=== PATIENT | male | born 2000 | race Caucasian/White ===

== ENCOUNTER 2022-02-02 14:21 | Emergency (ER) | payer OTHER | END 2022-02-02 15:30 | disposition home or self-care (01) | LOC: LL.ED 14:21 | DX: M41.125 Adolescent idiopathic scoliosis, thoracolumbar region (principal); Z88.8 Allergy status to other drugs, medicaments and biological substances | CPT/HCPCS: 72082; 99283 ==

== ENCOUNTER 2022-07-19 20:08 | Emergency (ER) | payer OTHER ==
[2022-07-19] MEDS ORDERED: Sodium Chloride 0.9% 10 ML Syringe FLUSH PRN (20:14)
[2022-07-19] MEDS ORDERED: Ondansetron 4 MG/2 ML SDV IVPUSH ONE (20:15)
[2022-07-19] MEDS ORDERED: Sodium Chloride 0.9% 1,000 ML IV SCH ×2 (20:30→21:45)
[2022-07-19 21:36] LABS: BARBITURATE SCREEN,URINE NEGATIVE (NEGATIVE); BENZODIAZEPINES SCREEN,URINE NEGATIVE (NEGATIVE); EDDP,URINE SCREEN NEGATIVE (NEGATIVE); TCA SCREEN,URINE POSITIVE (NEGATIVE); THC SCREEN,URINE 50 NG/ML POSITIVE (NEGATIVE)
[2022-07-19 21:37] LABS: BUPRENORPHINE SCREEN,URINE NEGATIVE (NEGATIVE)
[2022-07-19] MEDS ORDERED: cefTRIAXone 2 GM Vial IVPUSH SCH (21:45)
== END 2022-07-19 23:10 | disposition home or self-care (01) ==
LOC: LL.ED 20:08
DX: T40.601A Poisoning by unspecified narcotics, accidental (unintentional), initial encounter (principal); N39.0 Urinary tract infection, site not specified; Z88.8 Allergy status to other drugs, medicaments and biological substances
CPT/HCPCS: 80305-QW; 81001; 87086; 87088; 87186; 96361; 96374; 96375; 99284; 99284-25; J0696; J2405; J7030